=== PATIENT | female | born 1995 | race Caucasian/White ===

== ENCOUNTER 2016-10-12 19:21 | Emergency (ER) | payer OTHER ==
[~2016-10-12] VITALS: Ht 175.3 cm; Wt 82.0 kg
[2016-10-12] MEDS ORDERED: SODIUM CHLORIDE 0.9% 1,000 ML IV ONE (19:45)
[2016-10-12 20:05] LABS: BASOPHILS % (AUTO) 0.4 % (0.0-2.0); HEMATOCRIT 37.3 % (36-46); HEMOGLOBIN 12.4 g/dL (12.0-16.0); LYMPHOCYTES # (AUTO) 1.9 K/uL (1.0-4.8); LYMPHOCYTES % (AUTO) 27.5 % (22.0-44.0); MEAN CORPUSCULAR HEMOGLOBIN 29.6 pg (26.0-34.0); MEAN CORPUSCULAR HGB CONC 33.3 G/dL (31.0-37.0); MEAN CORPUSCULAR VOLUME 89 fL (80-100); MONOCYTES % (AUTO) 14.1 % (2.0-9.0); NEUTROPHILS # (AUTO) 3.8 K/uL (1.8-7.7); PLATELET COUNT (AUTO) 245 K/uL (150-450); RED BLOOD CELL COUNT(AUTO) 4.19 MIL/uL (4.00-5.20); RED CELL DISTRIBUTION WIDTH 13.1 % (11.5-14.5); WHITE BLOOD COUNT (AUTO) 6.9 K/uL (4.5-11.0)
[2016-10-12 20:18] LABS: ANION GAP 9 mmol/L (8-16); CARBON DIOXIDE 29 mmol/L (22-29); CHLORIDE 101 mmol/L (98-107); CREATININE 0.69 mg/dL (0.60-1.30); GLOMERULAR FILTR. RATE CALC > 60 mL/min (>60); POTASSIUM 3.6 mmol/L (3.5-5.1); SODIUM SERUM 139 mmol/L (136-145); UREA NITROGEN, BLOOD 13 mg/dL (7-18)
[2016-10-12 20:20] LABS: APPEARANCE,URINE CLEAR (CLEAR); GLUCOSE, URINE (UA) NEGATIVE (NEGATIVE); KETONES,URINE NEGATIVE (NEGATIVE); LEUKOCYTE ESTERASE ,URINE TRACE (NEGATIVE); OCCULT BLOOD,URINE TRACE (NEGATIVE); PH,URINE 6.5 (5.0-8.0); PROTEIN,URINE NEGATIVE (NEGATIVE)
[2016-10-12 20:28] LABS: ADD UA MICROSCOPIC YES
[2016-10-12 20:34] LABS: RBC,URINE 0-2 /HPF (0-2); SQUAMOUS EPITHELIAL CELL,UR Few /LPF (None Seen)
[2016-10-12 20:38] LABS: ALANINE AMINOTRANSFERASE 25 U/L (12-78); ALBUMIN 4.1 g/dL (3.4-5.0); ASPARTATE AMINOTRANSFERASE 15 U/L (15-37); BILIRUBIN,TOTAL 0.4 mg/dL (0.1-1.0); CREATINE KINASE, TOTAL 169 U/L (26-192); TOTAL PROTEIN, SERUM 8.1 g/dL (6.4-8.2)
[2016-10-12 20:39] VITALS: BP 128/70
[2016-10-12 21:01] LABS: THYROID STIMULATING HORMONE 3.05 uIU/mL (0.36-3.74)
== END 2016-10-12 21:30 | disposition home or self-care (01) ==
LOC: EMS 19:23
DX: I49.8 Other specified cardiac arrhythmias (principal); J06.9 Acute upper respiratory infection, unspecified; Z88.0 Allergy status to penicillin
CPT/HCPCS: 36415; 71020; 80053; 81001; 81025; 82550; 82553; 84443; 84484; 85025; 85651; 93005; 99285; J7030

== ENCOUNTER 2016-11-19 10:40 | Emergency (ER) | payer OTHER ==
[~2016-11-19] VITALS: Ht 172.7 cm; Wt 81.8 kg
[2016-11-19] MEDS ORDERED: CEFTAROLINE 600 MG/D5W 250 ML IV ONE (11:00)
[2016-11-19 11:26] LABS: BASOPHILS % (AUTO) 0.3 % (0.0-2.0); EOSINOPHILS % (AUTO) 2.5 % (1.0-6.0); HEMATOCRIT 37.5 % (36-46); HEMOGLOBIN 12.2 g/dL (12.0-16.0); LYMPHOCYTES # (AUTO) 1.4 K/uL (1.0-4.8); LYMPHOCYTES % (AUTO) 21.8 % (22.0-44.0); MEAN CORPUSCULAR HEMOGLOBIN 29.4 pg (26.0-34.0); MEAN CORPUSCULAR HGB CONC 32.5 G/dL (31.0-37.0); MEAN CORPUSCULAR VOLUME 90 fL (80-100); MONOCYTES # (AUTO) 0.7 K/uL (0.1-1.0); MONOCYTES % (AUTO) 11.1 % (2.0-9.0); NEUTROPHILS % (AUTO) 64.3 % (40.0-70.0); PLATELET COUNT (AUTO) 220 K/uL (150-450); RED BLOOD CELL COUNT(AUTO) 4.15 MIL/uL (4.00-5.20); RED CELL DISTRIBUTION WIDTH 13.4 % (11.5-14.5); WHITE BLOOD COUNT (AUTO) 6.3 K/uL (4.5-11.0)
[2016-11-19 13:28] VITALS: BP 126/58
== END 2016-11-19 13:57 | disposition home or self-care (01) ==
LOC: EMS 10:42
DX: H00.033 Abscess of eyelid right eye, unspecified eyelid (principal); Z88.0 Allergy status to penicillin
CPT/HCPCS: 36415; 85025; 96365; 99284; J0712

== ENCOUNTER → 2016-12-03 | Outpatient (CLI) | payer OTHER ==
[~2016-12-03] VITALS: Ht 172.7 cm; Wt 83.0 kg
[~2016-12-03] MED LIST: SULF1TAB42 PO
[2016-12-03 09:32] VITALS: BP 118/60
== END | disposition home or self-care (01) ==
LOC: SRCNTR 09:20
PROVIDERS: ATTEND Hospitalist
DX: L03.811 Cellulitis of head [any part, except face] (principal); I49.3 Ventricular premature depolarization; Z88.0 Allergy status to penicillin
CPT/HCPCS: G0463

== ENCOUNTER 2019-05-25 10:07 | Inpatient (IN) | payer OTHER ==
[~2019-05-25] VITALS: Ht 175.3 cm; Wt 100.0 kg
[2019-05-25] MEDS ORDERED: CEPH500 PO (10:19)
[2019-05-25] MEDS ORDERED: BIRTH CONTROL PILL PO (10:19)
[2019-05-25] MEDS ORDERED: KETOROLAC TROMETHAMINE 30 MG/ML VIAL IVP ONE (10:30)
[2019-05-25] MEDS ORDERED: SODIUM CHLORIDE 0.9% 1,000 ML IV ONE (10:30)
[2019-05-25] MEDS ORDERED: LIDOCAINE/PRILOCAINE 2.5% 30 GM CREAM TP ONE (10:30)
[2019-05-25] MEDS ORDERED: ACETAMINOPHEN 325 MG TABLET PO ONE (10:30)
[2019-05-25] MEDS ORDERED: CefTRIAXone 1 GM/DEXTROSE 50 ML IV ONE (11:00)
[2019-05-25] MEDS ORDERED: CLINDAMYCIN 600 MG/D5% WATER 50 ML IV ONE (11:00)
[2019-05-25 11:03] LABS: BASOPHILS % (AUTO) 0.2 % (0.0-2.0); EOSINOPHILS % (AUTO) 0.8 % (1.0-6.0); HEMATOCRIT 32.8 % (36-46); HEMOGLOBIN 11.5 g/dL (12.0-16.0); LYMPHOCYTES # (AUTO) 1.4 K/uL (1.0-4.8); LYMPHOCYTES % (AUTO) 12.7 % (22.0-44.0); MEAN CORPUSCULAR HEMOGLOBIN 30.6 pg (26.0-34.0); MEAN CORPUSCULAR VOLUME 88 fL (80-100); MONOCYTES % (AUTO) 9.5 % (2.0-9.0); NEUTROPHILS # (AUTO) 8.3 K/uL (1.8-7.7); NEUTROPHILS % (AUTO) 76.8 % (40.0-70.0); PLATELET COUNT (AUTO) 285 K/uL (150-450); RED BLOOD CELL COUNT(AUTO) 3.74 MIL/uL (4.00-5.20); RED CELL DISTRIBUTION WIDTH 12.2 % (11.5-14.5)
[2019-05-25 11:12] LABS: ANION GAP 11 mmol/L (8-16); CALCIUM, TOTAL 9.1 mg/dL (8.8-10.5); CARBON DIOXIDE 24 mmol/L (22-29); CHLORIDE 102 mmol/L (98-107); CREATININE 1.04 mg/dL (0.60-1.30); GLOMERULAR FILTR. RATE CALC > 60 mL/min (>60); GLUCOSE,RANDOM 93 mg/dL (70-110); POTASSIUM 3.8 mmol/L (3.5-5.1); SODIUM SERUM 137 mmol/L (136-145); UREA NITROGEN, BLOOD 10 mg/dL (7-18)
[2019-05-25] MEDS ORDERED: IOVERSOL 350 MG/ML 100 ML VIAL ONE (11:13)
[2019-05-25] MEDS ORDERED: SODIUM CHLORIDE 0.9% 100 ML ONE (11:13)
[2019-05-25 11:20] LABS: LACTIC ACID 1.1 mmol/L (0.4-2.0)
[2019-05-25 11:27] LABS: ALANINE AMINOTRANSFERASE 29 U/L (12-78); ALBUMIN 3.8 g/dL (3.4-5.0); ALKALINE PHOSPHATASE 96 U/L (46-116); ASPARTATE AMINOTRANSFERASE 14 U/L (15-37); BILIRUBIN,TOTAL 0.5 mg/dL (0.1-1.0); HCG,QUANTITATIVE < 1 mIU/mL (0-6); TOTAL PROTEIN, SERUM 8.8 g/dL (6.4-8.2)
[2019-05-25] MEDS ORDERED: NORE-87 PO (12:42)
[2019-05-25] MEDS ORDERED: 0.9% SODIUM CHLORIDE 10 ML SYRINGE IVP PRN (12:45)
[2019-05-25] MEDS ORDERED: ONDANSETRON HCL 4 MG/2 ML VIAL IVP PRN ×2 (12:45→15:00)
[2019-05-25] MEDS ORDERED: ACETAMINOPHEN 325 MG TABLET PO PRN ×2 (12:45→15:00)
[2019-05-25] MEDS ORDERED: MORPHINE SULFATE 2 MG/ML SYRINGE IVP ONE ×2 (14:15→15:00)
[2019-05-25] MEDS ORDERED: ONDANSETRON HCL 4 MG/2 ML VIAL IVP ONE (14:15)
[2019-05-25] MEDS ORDERED: ZOLPIDEM TARTRATE 5 MG TABLET PO PRN (15:00)
[2019-05-25] MEDS ORDERED: BISACODYL 10 MG RECTAL RECTAL SUPPOSITORY PR PRN (15:00)
[2019-05-25] MEDS ORDERED: MAGNESIUM HYDROXIDE SUSPENSION 30 ML UDCUP PO PRN (15:00)
[2019-05-25] MEDS ORDERED: MORPHINE SULFATE 2 MG/ML SYRINGE IVP PRN (15:00)
[2019-05-25] MEDS ORDERED: IPRATROPIUM BROMIDE 0.5 MG/2.5 ML NEB SOLUTION NEB PRN (15:00)
[2019-05-25] MEDS ORDERED: ALBUTEROL SULFATE 2.5 MG/0.5 ML NEB SOLUTION NEB PRN (15:00)
[2019-05-25] MEDS: DEXTROSE 5%-0.45% SODIUM CHL 1,000 ML IV SCH (15:01)
[2019-05-25] MEDS: HEPARIN SODIUM,PORCINE 5,000 UNITS/ML VIAL SQ SCH (15:25)
[2019-05-25 16:41] VITALS: BP 131/77
[2019-05-25 19:25] VITALS: BP 118/74
[2019-05-25] MEDS: DOCUSATE SODIUM 100 MG CAPSULE PO SCH (21:00)
[2019-05-25] MEDS ORDERED: DiphenhydrAMINE HCL 25 MG CAPSULE PO ONE (21:15)
[2019-05-25] MEDS: HYDROmorphone 2 MG/ML SYRINGE IVP PRN (21:22)
[2019-05-25] MEDS: DOXYCYCLINE HYCLATE 100 MG in DEXTROSE 5%-WATER 100 ML IV SCH (22:53)
[2019-05-25 23:45] VITALS: BP 122/65
[2019-05-26] MEDS: HYDROmorphone 2 MG/ML SYRINGE IVP PRN (00:44)
[2019-05-26 04:48] VITALS: BP 112/70
[2019-05-26] MEDS ORDERED: BUPIVACAINE HCL/PF 0.5% 30 ML VIAL ONE (07:14)
[2019-05-26] MEDS ORDERED: FentaNYL CITRATE-PF 100 MCG/2 ML VIAL IVP PRN (07:15)
[2019-05-26] MEDS ORDERED: MEPERIDINE-PF 25 MG/ML VIAL IVP PRN (07:15)
[2019-05-26] MEDS: BUPIVACAINE LIPOSOME/PF 1.3%-13.3MG/ML SUSPENSION 10 ML VIAL INJ ONE ×2 (07:15→07:51)
[2019-05-26] MEDS ORDERED: HYDROmorphone 2 MG/ML SYRINGE IVP PRN (07:15)
[2019-05-26] MEDS ORDERED: OXYGEN THERAPY IH SCH (08:00)
[2019-05-26] MEDS ORDERED: RINGERS SOLUTION,LACTATED 1,000 ML IV ONE (08:26)
[2019-05-26] MEDS ORDERED: BACITRACIN 28.4 GM OINTMENT TP ONE (08:44)
[2019-05-26] MEDS ORDERED: HYDROmorphone 2 MG/ML SYRINGE ONE (09:18)
[2019-05-26] MEDS ORDERED: MEPERIDINE-PF 25 MG/ML VIAL ONE (09:18)
[2019-05-26 10:05] VITALS: BP 98/46
[2019-05-26] MEDS: DOCUSATE SODIUM 100 MG CAPSULE PO SCH ×2 (10:15→20:27)
[2019-05-26] MEDS: HEPARIN SODIUM,PORCINE 5,000 UNITS/ML VIAL SQ SCH ×4 (10:15→23:48)
[2019-05-26] MEDS: DOXYCYCLINE HYCLATE 100 MG in DEXTROSE 5%-WATER 100 ML IV SCH ×2 (11:13→20:28)
[2019-05-26 11:22] VITALS: BP 91/54
[2019-05-26] MEDS ORDERED: PROPOFOL 1% 20 ML VIAL IVP ONE (12:00)
[2019-05-26] MEDS ORDERED: FentaNYL CITRATE-PF 100 MCG/2 ML VIAL IVP ONE (12:00)
[2019-05-26] MEDS ORDERED: DEXAMETHASONE SOD PHOS 4 MG/ML VIAL IVP ONE (12:00)
[2019-05-26] MEDS ORDERED: ONDANSETRON HCL 4 MG/2 ML VIAL IVP ONE (12:00)
[2019-05-26] MEDS ORDERED: SUCCINYLCHOLINE CHLORIDE 20 MG/ML 10 ML VIAL IVP ONE (12:00)
[2019-05-26] MEDS ORDERED: MIDAZOLAM HCL 2 MG/2 ML VIAL IVP ONE (12:00)
[2019-05-26] MEDS ORDERED: HYDROmorphone 2 MG/ML SYRINGE IVP ONE (12:00)
[2019-05-26] MEDS ORDERED: 0.9% SODIUM CHLORIDE 10 ML VIAL IVP ONE (12:00)
[2019-05-26] MEDS ORDERED: LIDOCAINE/PF 2% 5 ML VIAL INJ ONE (12:00)
[2019-05-26] MEDS: CefTRIAXone 1 GM/DEXTROSE 50 ML IV SCH (12:16)
[2019-05-26 15:18] LABS: BASOPHILS % (AUTO) 0.1 % (0.0-2.0); EOSINOPHILS % (AUTO) 0.1 % (1.0-6.0); HEMATOCRIT 30.3 % (36-46); HEMOGLOBIN 10.4 g/dL (12.0-16.0); LYMPHOCYTES # (AUTO) 0.6 K/uL (1.0-4.8); LYMPHOCYTES % (AUTO) 9.2 % (22.0-44.0); MEAN CORPUSCULAR HEMOGLOBIN 29.9 pg (26.0-34.0); MEAN CORPUSCULAR HGB CONC 34.3 G/dL (31.0-37.0); MEAN CORPUSCULAR VOLUME 87 fL (80-100); MONOCYTES # (AUTO) 0.2 K/uL (0.1-1.0); MONOCYTES % (AUTO) 2.7 % (2.0-9.0); NEUTROPHILS # (AUTO) 5.7 K/uL (1.8-7.7); PLATELET COUNT (AUTO) 243 K/uL (150-450); RED BLOOD CELL COUNT(AUTO) 3.47 MIL/uL (4.00-5.20); RED CELL DISTRIBUTION WIDTH 12.2 % (11.5-14.5)
[2019-05-26 15:26] LABS: NEUTROPHILS % (AUTO) 87.9 % (40.0-70.0)
[2019-05-26] MEDS: DEXTROSE 5%-0.45% SODIUM CHL 1,000 ML IV SCH (15:38)
[2019-05-26 15:39] LABS: ANION GAP 8 mmol/L (8-16); CALCIUM, TOTAL 8.7 mg/dL (8.8-10.5); CARBON DIOXIDE 27 mmol/L (22-29); CHLORIDE 102 mmol/L (98-107); CREATININE 0.56 mg/dL (0.60-1.30); GLOMERULAR FILTR. RATE CALC > 60 mL/min (>60); GLUCOSE,RANDOM 157 mg/dL (70-110); SODIUM SERUM 137 mmol/L (136-145); UREA NITROGEN, BLOOD 5 mg/dL (7-18)
[2019-05-26 15:58] VITALS: BP 95/59
[2019-05-26 15:58] LABS: PLATELET MORPHOLOGY COMMENT GIANT PLTS PRESENT
[2019-05-26 20:09] VITALS: BP 106/56
[2019-05-26] MEDS: HYDROCODONE/ACETAMINOPHEN 5-325 MG TABLET PO PRN (23:52)
[2019-05-27 00:39] VITALS: BP 93/47
[2019-05-27] MEDS: DEXTROSE 5%-0.45% SODIUM CHL 1,000 ML IV SCH (05:36)
[2019-05-27 05:38] VITALS: BP 102/53
[2019-05-27] MEDS: DOXYCYCLINE HYCLATE 100 MG in DEXTROSE 5%-WATER 100 ML IV SCH ×2 (07:51→20:17)
[2019-05-27] MEDS: DOCUSATE SODIUM 100 MG CAPSULE PO SCH ×2 (07:51→20:16)
[2019-05-27] MEDS: HEPARIN SODIUM,PORCINE 5,000 UNITS/ML VIAL SQ SCH ×3 (07:51→23:51)
[2019-05-27] MEDS: HYDROCODONE/ACETAMINOPHEN 5-325 MG TABLET PO PRN ×2 (07:51→23:51)
[2019-05-27 08:12] VITALS: BP 93/45
[2019-05-27 11:53] VITALS: BP 112/53
[2019-05-27] MEDS: CefTRIAXone 1 GM/DEXTROSE 50 ML IV SCH (12:27)
[2019-05-27] MEDS: HYDROmorphone 2 MG/ML SYRINGE IVP PRN (12:31)
[2019-05-27 15:41] VITALS: BP 108/51
[2019-05-27 19:58] VITALS: BP 100/63
[2019-05-28 00:01] VITALS: BP 99/51
[2019-05-28 05:10] VITALS: BP 106/65
[2019-05-28] MEDS: DOCUSATE SODIUM 100 MG CAPSULE PO SCH (08:03)
[2019-05-28 08:04] VITALS: BP 123/64
[2019-05-28] MEDS: HEPARIN SODIUM,PORCINE 5,000 UNITS/ML VIAL SQ SCH (08:04)
[2019-05-28] MEDS: DOXYCYCLINE HYCLATE 100 MG in DEXTROSE 5%-WATER 100 ML IV SCH (08:04)
[2019-05-28 11:45] VITALS: BP 114/50
[2019-05-28] MEDS ORDERED: HYDR-4061 PO (13:32)
[2019-05-28] MEDS ORDERED: CEPH-582 PO (13:38)
[2019-05-28] MEDS ORDERED: BACI3.5O22 (13:41)
[2019-05-28] MEDS ORDERED: DOCU-275 PO (13:43)
== END 2019-05-28 15:24 | disposition home or self-care (01) | DRG 572 ==
LOC: EMS 10:10 → 4E 15:03
PROVIDERS: ADMIT Hospitalist; ATTEND Hospitalist
PROC: 0JX90ZZ Transfer Buttock Subcutaneous Tissue and Fascia, Open Approach (ICD-10-PCS; 2019-05-26)
PROC: 0JB90ZZ Excision of Buttock Subcutaneous Tissue and Fascia, Open Approach (ICD-10-PCS; principal; 2019-05-26 07:30)
DX: L05.01 Pilonidal cyst with abscess (principal); D64.9 Anemia, unspecified; Z88.0 Allergy status to penicillin
CPT/HCPCS: 72193; 83605; 87040; 88304; 93005; G0378; J0330; J0696; J1100; J1170; J1644; J1885; J2175; J2250; J2270; J2405; J2704; J3010; J3490; J7030; J7050; J7060; J7120

== ENCOUNTER → 2020-03-12 | Outpatient (CLI) | payer OTHER ==
[~2020-03-12] MED LIST changes: +BACI3.5O22; +CEPH-582 PO; +DOCU-275 PO; +HYDR-4061 PO; +NORE-87 PO; -SULF1TAB42 PO
== END | disposition home or self-care (01) ==
LOC: EMS 16:48
DX: Z20.828 Contact with and (suspected) exposure to other viral communicable diseases (principal)
CPT/HCPCS: U0003-CS

== ENCOUNTER 2020-10-15 09:29 | Emergency (ER) | payer OTHER ==
[~2020-10-15] VITALS: Ht 175.3 cm; Wt 100.0 kg
[2020-10-15] MEDS ORDERED: CEFTAROLINE 600 MG/D5W 250 ML IV ONE (10:15)
[2020-10-15 10:46] LABS: BASOPHILS % (AUTO) 0.4 % (0.0-2.0); HEMATOCRIT 38.8 % (36-46); HEMOGLOBIN 13.4 g/dL (12.0-16.0); LYMPHOCYTES # (AUTO) 2.3 K/uL (1.0-4.8); LYMPHOCYTES % (AUTO) 32.6 % (22.0-44.0); MEAN CORPUSCULAR HEMOGLOBIN 30.6 pg (26.0-34.0); MEAN CORPUSCULAR HGB CONC 34.5 G/dL (31.0-37.0); MEAN CORPUSCULAR VOLUME 89 fL (80-100); MONOCYTES # (AUTO) 0.8 K/uL (0.1-1.0); NEUTROPHILS # (AUTO) 3.6 K/uL (1.8-7.7); PLATELET COUNT (AUTO) 248 K/uL (150-450); RED BLOOD CELL COUNT(AUTO) 4.37 MIL/uL (4.00-5.20); RED CELL DISTRIBUTION WIDTH 12.8 % (11.5-14.5)
[2020-10-15 11:45] VITALS: BP 120/67
== END 2020-10-15 12:02 | disposition home or self-care (01) ==
LOC: EMS 09:52
DX: R23.8 Other skin changes (principal); Z79.899 Other long term (current) drug therapy; Z88.0 Allergy status to penicillin
CPT/HCPCS: 36415; 81025; 85025; 96365; 99284; J0712

== ENCOUNTER 2022-03-05 06:32 | Emergency (ER) | payer OTHER ==
[~2022-03-05] VITALS: Ht 175.3 cm; Wt 90.9 kg
[~2022-03-05 06:32] MED LIST changes: -DOCU-275 PO; +DOCU-385 PO
[2022-03-05 06:59] VITALS: BP 123/81
[2022-03-05] MEDS ORDERED: LIDOCAINE 5% TRANSDERMAL PATCH TD ONE (07:00)
[2022-03-05] MEDS ORDERED: LIDO700A15 TP (07:43)
== END 2022-03-05 07:59 | disposition home or self-care (01) ==
LOC: EMS 06:33
DX: S83.91XA Sprain of unspecified site of right knee, initial encounter (principal); S29.012A Strain of muscle and tendon of back wall of thorax, initial encounter; Z88.0 Allergy status to penicillin; Z98.890 Other specified postprocedural states; X58.XXXA Exposure to other specified factors, initial encounter; Y93.89 Activity, other specified; Y92.128 Other place in nursing home as the place of occurrence of the external cause; Y99.0 Civilian activity done for income or pay
CPT/HCPCS: 99283